=== PATIENT | female | born 1985 | race American Indian/Alaskan Native ===

== ENCOUNTER 2017-03-07 23:03 | Emergency (ER) | payer MEDICARE ==
[2017-03-08 01:40] LABS: Bacteria,Urine 1+ /HPF (Negative); Bilirubin,Urine NEG (Negative); Blood,Urine NEG (Negative); Ketones,Urine NEG (Negative); Leukocyte Esterase,Urine NEG (Negative); Nitrite,Urine NEG (Negative); Protein,Urine <15 mg/dL mg/dL (Negative); Urobilinogen,Urine < 2.0 mg/dL (<2.0); WBC,Urine < 1.0 /HPF (0.0-6.0)
[2017-03-08 01:51] LABS: Basophils % (Auto) 0.7 % (0.0-1.8); Hematocrit 36.5 % (30.3-42.9); Hemoglobin 11.9 gm/dl (10.1-14.3); Mean Corpuscular HGB Conc 33 % (30-34); Mean Corpuscular Hemoglobin 26 pg (28-32); Mean Corpuscular Volume 80 fl (79-97); Platelet Count 181 K/mm3 (140-440); Red Blood Count 4.56 M/mm3 (3.65-5.03); Red Cell Distribution Width 15.3 % (13.2-15.2); White Blood Count 6.8 K/mm3 (4.5-11.0)
[2017-03-08 02:01] VITALS: BP 125/82
--- NOTE | 2017-03-08 02:09 | Emergency Department Report ---
HPI - General Chief Complaint: Abdominal Pain Time Seen by Provider: 03/08/17 01:42 - HPI HPI: This is a 31-year-old -[place] female who presents to the emergency department from home with complaint of sharp lower abdominal/pelvic discomfort since yesterday. She denies any nausea, vomiting, fever, vaginal bleeding, vaginal discharge, dysuria. The patient did have a positive home test a few days ago. Her last menstrual cycle was on January 24. With this she is . She has a primary care physician scheduled but has not seen them yet. She does not have a [facility]. She did not take anything for symptoms prior to presentation. She has a past medical history of seizures and LVH. No recent travel or sick contacts at home. ED Past Medical Hx - Past Medical History Previous Medical History?: Yes Hx Diabetes: Yes Hx Headaches / Migraines: Yes Hx Seizures: Yes Additional medical history: Neuro disorder, left ventricular hypertrophy - Surgical History Past Surgical History?: Yes Additional Surgical History: L Leg - Social History Smoking Status: Never Smoker Substance Use Type: None - Medications Home Medications: Home Medications Medication Instructions Recorded Confirmed Last Taken Type Butalb/Acetaminophen/Caffeine 2 tab PO Q6HR PRN 04/29/14 06/10/14 04/28/14 History [Fioricet 50-300-40 mg Capsule] lamoTRIgine [LaMICtal] 100 mg PO BID #60 tablet 04/29/14 06/10/14 06/10/14 Rx Methocarbamol [Robaxin] 750 mg PO BID PRN 06/10/14 06/10/14 Unknown History OXcarbazepine [Trileptal] 300 mg PO BID 06/10/14 06/10/14 Unknown History Prochlorperazine [Compazine] 10 mg PO BID PRN 06/10/14 06/10/14 Unknown History Ziprasidone [Geodon] 40 mg PO BID 06/10/14 06/10/14 Unknown History clonazePAM [ Klonopin] 0.5 mg PO BID PRN 06/10/14 06/10/14 Unknown History Vit No.130/Iron/FA 1 each PO QDAY #30 tablet 03/08/17 Unknown Rx [ Tablet] ED Review of Systems ROS: Stated complaint: LOWER STOMACH PAIN/BACK PAIN/ Other details as noted in HPI Comment: All other systems reviewed and negative Constitutional: denies: chills, fever Eyes: denies: eye pain, eye discharge, vision change ENT: denies: ear pain, throat pain Respiratory: denies: cough, shortness of breath, wheezing Cardiovascular: denies: chest pain, palpitations Gastrointestinal: abdominal pain. denies: nausea, vomiting Genitourinary: denies: urgency, dysuria, discharge Musculoskeletal: denies: back pain, joint swelling, arthralgia Skin: denies: rash, lesions Neurological: denies: headache, weakness, paresthesias Physical Exam - Physical Exam Vital Signs: Vital Signs 03/08/17 03/08/17 03/08/17 00:30 00:58 02:00 Temperature 98.6 F 98.6 F 98.8 F Pulse Rate 56 L 56 L 96 H Respiratory 18 18 18 Rate Blood Pressure 152/100 Blood Pressure 152/100 125/82 [Right] O2 Sat by Pulse 100 100 100 Oximetry Physical Exam: GENERAL: The patient is well-developed well-nourished. HEENT: Normocephalic. Atraumatic. Extraocular motions are intact. Patient has moist mucous membranes. Pupils equal reactive to light bilaterally. NECK: Supple. Trachea is midline. CHEST/LUNGS: Clear to auscultation. There is no respiratory distress noted. HEART/CARDIOVASCULAR: Regular. There is no tachycardia. There is no gallop rub or murmur. ABDOMEN: Abdomen is soft. Unable to reproduce tenderness to palpation. No guarding or rebound tenderness. No peritoneal signs. Patient has normal bowel sounds. There is no abdominal distention. SKIN: There is no rash. There is no edema. There is no diaphoresis. NEURO: The patient is awake, alert, and oriented. The patient is cooperative. The patient has no focal neurologic deficits. The patient has normal speech. MUSCULOSKELETAL: There is no tenderness or deformity. There is no limitation range of motion. There is no evidence of acute injury. ED Course Vital Signs 03/08/17 03/08/17 03/08/17 00:30 00:58 02:00 Temperature 98.6 F 98.6 F 98.8 F Pulse Rate 56 L 56 L 96 H Respiratory 18 18 18 Rate Blood Pressure 152/100 Blood Pressure 152/100 125/82 [Right] O2 Sat by Pulse 100 100 100 Oximetry ED Medical Decision Making - Lab Data Result diagrams: 03/08/17 01:13 03/08/17 01:13 - Radiology Data Radiology results: report reviewed PROCEDURE: US OB TRANSVAGINAL TECHNIQUE: Real-time transabdominal and transvaginal sonography of the uterus, placenta, amniotic fluid, adnexa, and fetus was performed with image documentation. Measurements were obtained to determine age/size. M-mode Doppler was used to document heartbeat. CPT 18035 and 81964 HISTORY: abd pain, preg COMPARISON: No prior studies are available for comparison. FINDINGS: Gestational Sac: There is a gestational sac within the uterus. The gestational sac size is 6.4 millimeters would correspond to gestational age of approximately 5 weeks. A yolk sac is identified. A pole is not seen at this time. Amniotic fluid: Normal. Cervix: Normal. Right Ovary: Normal. Left Ovary: Complex cyst measures 2.3 centimeters IMPRESSION: There is a gestational sac within the uterus. The gestational sac size would correspond to gestational age approximately 5 weeks. A yolk sac is identified. No pole is seen at this time. There is a dominant complex cyst on the left ovary measuring 2.3 centimeters. Followup studies may be appropriate and could include serial beta HCG levels and repeat ultrasound in approximately 14 days. - Medical Decision Making 31-year-old female presents to the emergency department with a one-day history of some lower abdominal and/or pelvic discomfort. She had a positive test at home. This was confirmed here as well. There is no urinary tract infection. Beta hCG of 2500. Transvaginal/ ultrasound was done that shows a intrauterine with a gestational sac and yolk sac but no pole or heart rate at this time. Consistent with about 5 weeks so it would be a early . Patient does not have any vaginal bleeding. While the patient says she isn't moving to [place] soon, she will be given referrals for [facility] and started on vitamins. She is aware that it appears consistent with an early intrauterine but she will need a repeat hormone level an ultrasound in the next week or so to definitively show viability. She will be seen sooner with any worsening of her discomfort or any vaginal bleeding development. She understands and agrees to plan. - Differential Diagnosis , spontaneous miscarriage, fibroids, UTI Critical Care Time: No Critical care attestation.: If time is entered above; I have spent that time in minutes in the direct care of this critically ill patient, excluding procedure time. ED Disposition Clinical Impression: Qualifiers: Weeks of gestation: less than 8 weeks Qualified Code(s): Z3A.01 - Less than 8 weeks gestation of Abdominal pain Qualifiers: Abdominal location: lower abdomen, unspecified Qualified Code(s): R10.30 - Lower abdominal pain, unspecified Disposition: TO HOME OR SELFCARE Is pt being admited?: No Condition: Stable Instructions: Abdominal Pain (ED), (ED) Additional Instructions: Please follow up with a [facility] in the next few days. Return to the emergency department with any worsening of your discomfort or any vaginal bleeding or any acute distress. I have prescribed you vitamins. You can take Tylenol every 4 hours, using weight-based dosing, as needed for discomfort. Otherwise do not take any medications that are not prescribed by a physician. Prescriptions: Vit No.130/Iron/FA [ Tablet] 1 each PO QDAY #30 tablet Referrals: PRIMARY CARE, [Primary Care Provider] - 3-5 Days [facility] [Provider Group] - 3-5 Days [facility] [Provider Group] - 3-5 Days [facility] [Provider Group] - 3-5 Days Time of Disposition: 03:48
[2017-03-08 02:14] LABS: Alanine Aminotransferase 58 units/L (7-56); Albumin 4.3 g/dL (3.9-5); Albumin/Globulin Ratio 1.6 %; Alkaline Phosphatase 66 units/L (35-129); Anion Gap 18 mmol/L; Bilirubin,Total < 0.20 mg/dL (0.1-1.2); Blood Urea Nitrogen 6 mg/dL (7-17); Carbon Dioxide 25 mmol/L (22-30); Chloride 100.3 mmol/L (98-107); Glucose 89 mg/dL (65-100); Lipase 33 units/L (13-60); Potassium 3.7 mmol/L (3.6-5.0); Sodium 140 mmol/L (137-145)
--- NOTE | 2017-03-08 03:39 | Ultrasound Report ---
FINAL REPORT PROCEDURE: US OB TRANSVAGINAL TECHNIQUE: Real-time transabdominal and transvaginal sonography of the uterus, placenta, amniotic fluid, adnexa, and fetus was performed with image documentation. Measurements were obtained to determine age/size. M-mode Doppler was used to document heartbeat. CPT 12276 and 25305 HISTORY: abd pain, preg COMPARISON: No prior studies are available for comparison. FINDINGS: Gestational Sac: There is a gestational sac within the uterus. The gestational sac size is 6.4 millimeters would correspond to gestational age of approximately 5 weeks. A yolk sac is identified. A pole is not seen at this time. Amniotic fluid: Normal. Cervix: Normal. Right Ovary: Normal. Left Ovary: Complex cyst measures 2.3 centimeters IMPRESSION: There is a gestational sac within the uterus. The gestational sac size would correspond to gestational age approximately 5 weeks. A yolk sac is identified. No pole is seen at this time. There is a dominant complex cyst on the left ovary measuring 2.3 centimeters. Followup studies may be appropriate and could include serial beta HCG levels and repeat ultrasound in approximately 14 days.
--- NOTE | 2017-03-08 03:39 | Ultrasound Report ---
FINAL REPORT PROCEDURE: US OB TRANSVAGINAL TECHNIQUE: Real-time transabdominal and transvaginal sonography of the uterus, placenta, amniotic fluid, adnexa, and fetus was performed with image documentation. Measurements were obtained to determine age/size. M-mode Doppler was used to document heartbeat. CPT 94517 and 32626 HISTORY: abd pain, preg COMPARISON: No prior studies are available for comparison. FINDINGS: Gestational Sac: There is a gestational sac within the uterus. The gestational sac size is 6.4 millimeters would correspond to gestational age of approximately 5 weeks. A yolk sac is identified. A pole is not seen at this time. Amniotic fluid: Normal. Cervix: Normal. Right Ovary: Normal. Left Ovary: Complex cyst measures 2.3 centimeters IMPRESSION: There is a gestational sac within the uterus. The gestational sac size would correspond to gestational age approximately 5 weeks. A yolk sac is identified. No pole is seen at this time. There is a dominant complex cyst on the left ovary measuring 2.3 centimeters. Followup studies may be appropriate and could include serial beta HCG levels and repeat ultrasound in approximately 14 days.
== END 2017-03-08 04:08 | disposition home or self-care (01) ==
LOC: ED 23:03
DX: O26.891 Other specified pregnancy related conditions, first trimester (principal); R10.30 Lower abdominal pain, unspecified; E11.9 Type 2 diabetes mellitus without complications; G43.909 Migraine, unspecified, not intractable, without status migrainosus; Z3A.01 Less than 8 weeks gestation of pregnancy
CPT/HCPCS: 36415; 76801; 76817; 80053; 81001; 81025; 83690; 84702; 85025